=== PATIENT | male | born 1960 | race Caucasian/White ===

== ENCOUNTER 2017-03-17 11:35 | Emergency (ER) | payer SELFPAY ==
[2017-03-17 11:41] VITALS: BP 145/77; PULSE 86; TEMP 98.2; BMI 42.0
[2017-03-17] MEDS ORDERED: KETOROLAC TROMETHAMINE 60 MG/2 ML VIAL IM ONE (12:18)
--- NOTE | 2017-03-17 12:18 | PDOC ---
History of Present Illness - General Chief Complaint: Back Pain Stated Complaint: BACK PAIN Time Seen by Provider: 03/17/17 11:52 History Source: Patient Exam Limitations: No Limitations - History of Present Illness Initial Comments: 03/17/17 12:09 CHIEF COMPLAINT: Pain radiating down the right leg, Lower back pain HISTORY OF PRESENT ILLNESS: 56 -year-old male, with history of low back pain from an accident in 2013. Reports that pain comes and goes. Has been taking neurontin with no resolve. Pain is keeping him up at night, Pain to debra lower back radiating down the right leg. No neurosensory deficits, no bowel or bladder difficulty incontinence or urinary retention, no saddle anesthesia, no footdrop. No history of IVDU or history of cancer. REVIEW OF SYSTEMS: GENERAL: Afebrile, denies any weakness RESPIRATORY: No cough, wheezing, or hemoptysis. CARDIAC: No chest pain or shortness of breath MUSCULOSKELETAL: Pain to generalized lower back. No point tenderness. Pain worse on right than left. SKIN : No erythema, no bruising, no deformity. GI/: Denies any abdominal pain, no urinary difficulty, incontinence or urinary retention. RECTAL: Denies any difficulty this A.m. NEUROLOGICAL: Denies any numbness or tingling. No neurosensory deficits. PHYSICAL EXAM: GENERAL: The patient is awake, alert, and fully oriented, in no acute distress. RESPIRATORY: Lungs clear bilaterally, no rhonchi wheezes or crackles CARDIAC: S1-S2 audible, no murmur rub or gallop MUSCULOSKELETAL: Pain to generalized lower back, nonradiating, no tingling or sensory deficit. Less than 2 second cap refill, +4 popliteal and pedal pulses. GI/: Abdomen soft, nontender, nondistended. No rebound tenderness. No masses palpable. MUSCULOSKELETAL: No spinal point tenderness. Right paraspinal pain. Normal reflexive and no deficits to sensation or strength. RECTAL: Normal Rectal Tone. SKIN: Warm, Dry, normal turgor, no erythema, no edema no bruising. Past History - Past Medical History Allergies/Adverse Reactions: Allergies Allergy/AdvReac Type Severity Reaction Status Date / Time No Known Allergies Allergy Verified 03/17/17 11:41 Home Medications: Ambulatory Orders Cyclobenzaprine HCl [Flexeril 10 mg] 10 mg PO BID PRN #20 tablet 03/17/17 Naproxen [Naprosyn -] 500 mg PO BID #20 tablet 03/17/17 Psychiatric Problems: Yes (ANXIETY/DEPRESSION) - Surgical History Abdominal Surgery: Yes (HERNIA) Cholecystectomy: Yes Orthopedic Surgery: Yes ([facility]) - Immunization History Immunization Up to Date: No - Psycho/Social/Smoking Cessation Hx Anxiety: No Suicidal Ideation: No Smoking History: Never smoked Have you smoked in the past 12 months: No Information on smoking cessation initiated: No Hx Alcohol Use: No Drug/Substance Use Hx: No Substance Use Type: None Hx Substance Use Treatment: No *Physical Exam - Vital Signs Last Vital Signs Temp Pulse Resp BP Pulse Ox 98.2 F 86 18 145/77 98 03/17/17 11:38 03/17/17 11:38 03/17/17 11:38 03/17/17 11:38 03/17/17 11:38 Medical Decision Making - Medical Decision Making 03/17/17 12:18 A/P : Patient here with lower back pain, spasm, history of the same. Has only been taking Neurontin for pain. Patient was seen by his PMD and MRI was performed history of herniated disc. Toradol 60 mg IM given times one with good result patient states he feels better we'll DC patient home on Flexeril and Naprosyn, follow-up with neurology. I discussed the physical exam findings and final diagnoses with the patient. I answered all of the patient's questions. The patient was satisfied with the care received and felt comfortable with the discharge plan and treatment plan. The patient will call to arrange follow-up and will return to the Emergency Department with any new, persistent or worsening symptoms. *DC/Admit/Observation/Transfer Diagnosis at time of Disposition: Back pain Qualifiers: Back pain location: low back pain Chronicity: chronic Back pain laterality: bilateral Sciatica presence: with sciatica Sciatica laterality: sciatica of right side Qualified Code(s): M54.41 - Lumbago with sciatica, right side - Discharge Dispostion Disposition: HOME Condition at time of disposition: Good Admit: No - Prescriptions Prescriptions: Cyclobenzaprine HCl [Flexeril 10 mg] 10 mg PO BID PRN #20 tablet PRN Reason: Pain Naproxen [Naprosyn -] 500 mg PO BID #20 tablet - Referrals Referrals: Mery Cervantes MD [Primary Care Provider] - - Patient Instructions Printed Discharge Instructions: Low Back Pain, Back Pain (Alternative Therapy) Additional Instructions: 1. Please return to the emergency department with any numbness, tingling, weakness, numbness or tingling to groin or legs, or loss of bowel or bladder function. 2. Use pain medication as ordered. 3. Please is to followup in the office of for evaluation within a week if no improvement. 4. Ice or heat 5. Refrain from lifting anything above 10 pounds, until pain resolved. - Post Discharge Activity Work/School Note: Back to Work
[2017-03-17] MEDS ORDERED: KETOROLAC TROMETHAMINE 60 MG/2 ML VIAL ONE (12:22)
== END 2017-03-17 14:00 | disposition home or self-care (01) ==
LOC: JERFT 11:35
PROC: 3E0233Z Introduction of Anti-inflammatory into Muscle, Percutaneous Approach (ICD-10-PCS; principal; 2017-03-17)
DX: M54.41 Lumbago with sciatica, right side (principal); Z87.39 Personal history of other diseases of the musculoskeletal system and connective tissue
CPT/HCPCS: 99281-25